=== PATIENT | female | born 1950 | race Two or more races ===

== ENCOUNTER 2021-06-02 11:58 | Emergency (ER) | payer OTHER ==
[~2021-06-02] VITALS: Ht 165.1 cm; Wt 74.4 kg
[2021-06-02 16:15] VITALS: BP 148/79
== END 2021-06-02 16:23 | disposition home or self-care (01) ==
LOC: ER 11:58
DX: S86.912A Strain of unspecified muscle(s) and tendon(s) at lower leg level, left leg, initial encounter (principal); S86.911A Strain of unspecified muscle(s) and tendon(s) at lower leg level, right leg, initial encounter; R51.9 Headache, unspecified; I10 Essential (primary) hypertension; W18.39XA Other fall on same level, initial encounter; Y93.89 Activity, other specified; Y92.89 Other specified places as the place of occurrence of the external cause; Y99.8 Other external cause status
CPT/HCPCS: 70450; 72125; 73562; 73630; 93005

== ENCOUNTER 2021-11-10 10:29 | Emergency (ER) | payer OTHER ==
[~2021-11-10] VITALS: Ht 165.1 cm; Wt 74.5 kg
[2021-11-10 11:37] VITALS: BP 131/78
[2021-11-10] MEDS ORDERED: ACET-1080 PO (12:28)
[2021-11-10] MEDS ORDERED: ACETAMINOPHEN 500 MG TAB PO ONE (12:30)
== END 2021-11-10 13:11 | disposition home or self-care (01) ==
LOC: ER 10:36
DX: G44.209 Tension-type headache, unspecified, not intractable (principal); I10 Essential (primary) hypertension; Z79.899 Other long term (current) drug therapy
CPT/HCPCS: 70450

== ENCOUNTER 2021-11-27 12:03 | Emergency (ER) | payer OTHER ==
[~2021-11-27 12:03] MED LIST: ACET-1080 PO
== END 2021-11-27 12:35 | disposition left against medical advice (07) ==
LOC: ER 12:03
DX: R51.9 Headache, unspecified (principal); Z53.21 Procedure and treatment not carried out due to patient leaving prior to being seen by health care provider